=== PATIENT | male | born 1970 | race Caucasian/White ===

== ENCOUNTER 2017-04-11 18:42 | Observation (INO) | payer BC ==
[~2017-04-11] VITALS: Ht 175.3 cm; Wt 94.2 kg
[2017-04-11 19:30] LABS: BASOPHILS 0.3 % (0-2); HEMATOCRIT 43.6 % (42.0-54.0); HEMOGLOBIN 15.3 g/dL (13.5-17.5); IMMATURE GRANULOCYTES 0.1 % (0-5); LYMPHOCYTES 28.7 % (15-50); MCH 30.9 pg (26.0-34.0); MCHC 35.1 g/dL (31.0-37.0); MCV 88.1 fL (80.0-100.0); MEAN PLATELET VOLUME 10.2 fL (7.4-10.4); MONOCYTES 9.1 % (2-11); NEUTROPHILS 57.8 % (40-80); PLATELET COUNT 186 10x3/uL (130-400); RBC 4.95 10x6/uL (4.20-6.10); RDW 12.8 % (11.5-14.5); WBC 7.3 10x3/uL (4.8-10.8)
[2017-04-11 19:55] LABS: ALBUMIN 4.1 g/dL (3.4-5.0); ALKALINE PHOSPHATASE 35 U/L (46-116); ALT (SGPT) 37 U/L (10-68); AMYLASE - SERUM 33 U/L (25-115); BILIRUBIN - TOTAL 0.25 mg/dL (0.2-1.3); CALC OSMOLALITY 282 mosm/kg (275-300); CARBON DIOXIDE 27.6 mmol/L (21.0-32.0); CHLORIDE - SERUM 105 mmol/L (98-107); CKMB 1.7 U/L (0.0-3.6); CREATINE KINASE 158 UL (21-232); CREATININE - SERUM 1.2 mg/dL (0.6-1.3); GLUCOSE 103 mg/dL (74-106); LIPASE 120 U/L (73-393); POTASSIUM - SERUM 3.6 mmol/L (3.5-5.1); PROTEIN - SERUM 7.4 g/dL (6.4-8.2); SODIUM 142 mmol/L (136-145); UREA NITROGEN 13 mg/dL (7-18); eGFR NON AFRICAN AMERICAN 69 mL/min (90-120)
[2017-04-11 19:56] LABS: CALCIUM 8.8 mg/dL (8.5-10.1); TROPONIN-I < 0.017 ng/mL (0.000-0.060)
[2017-04-11 21:41] VITALS: Ht 175.3 cm; Wt 94.2 kg
--- NOTE | 2017-04-11 21:56 | NUR ---
REC'D PT FROM ER VIA W/C. FAMILY PRESENT. PT A/O X3. TELEMETRY PLACED ON PT RUNNING SR AT 90. PT DENIES ACTIVE CHEST PAIN. C/O OF DISCOMFORT WHEN TAKING A "BIG BREATH". BUT STATES THAT IS IMPROVING. PT GIVEN ICE WATER AND A SANDWICH. DENIES NEEDS AT THIS TIME. IV TO PT'S LEFT AC IS PATENT. ORIENTED PT TO ROOM. CALL LIGHT WITH IN REACH. WILL CONT. TO MONITOR.
--- NOTE | 2017-04-11 23:22 | NUR ---
PT LAYING IN BED A/O. HOB ELEVATED. PT VISITING WITH SEVERAL FAMILY MEMEBERS. NO DISTRESS NOTED. CALL LIGHT WITH IN REACH. WILL CONT. TO MONITOR.
[2017-04-12] VITALS: BP 130/77
--- NOTE | 2017-04-12 00:04 | NUR ---
PT C/O OF CHEST PAIN 4/10 ON PAIN SCALE. STATES IT IS MORE LIKE A DULL PAIN. CURRENTLY PAIN IS LOCALIZED TO CENTER OF THE CHEST, AND NOT RADIATING. RUNNING NS AT 86 ON TELEMETRY. METAL ENGINEERING PROCESS WORKER PAGED TO NOTIFY ER PHYSICIAN, AND TO OBTAIN A CARDIAC CONSULT ORDER. PT STATES " I BET IT IS JUST GAS." PT DENIES NEEDS AT THIS TIME. SPOUSE AT BEDSIDE. CALL LIGHT WITH IN REACH. WILL CONT. TO MONITOR.
--- NOTE | 2017-04-12 00:26 | NUR ---
EKG OBTAINED FOR COMPARISON. REVIEWED BY HORACIO RN/CHARGE NURSE. NO SIGNIFICANT CHANGES NOTED. WILL CONT. TO MONITOR.
--- NOTE | 2017-04-12 00:29 | NUR ---
PT LAYING IN BED WITH SPOUSE WATCHING TV. STATES CP IS A 1 OR 2. DENIES NEEDS. NO DISTRESS NOTED. WEARING O2 AT 2 LITERS VIA NC. CALL LIGHT WITH IN REACH. WILL CONT. TO MONITOR.
[2017-04-12 01:40] LABS: CREATINE KINASE 148 UL (21-232)
[2017-04-12 01:52] LABS: TROPONIN-I < 0.017 ng/mL (0.000-0.060)
--- NOTE | 2017-04-12 02:33 | NUR ---
PT SLEEPING. APPEARS COMFORTABLE. RESP EVEN AND UNLABORED. NO DISTRESS NOTED. SPOUSE AT BEDSIDE. CALL LIGHT WITH IN REACH. WILL CONT. TO MONITOR.
[2017-04-12 04:00] VITALS: BP 112/71
--- NOTE | 2017-04-12 04:27 | NUR ---
PT SLEEPING. AWAKEN BY PROFESSOR OF CRIMINAL JUSTICE. DENIES NEEDS. DENIES PAIN OR DISCOMFORT AT THIS TIME. SPOUSE AT BEDSIDE. CALL LIGHT WITH IN REACH. WILL CONT. TO MONITOR.
--- NOTE | 2017-04-12 05:55 | NUR ---
PT SLEEPING SOUNDLY. RESP EVEN AND UNLABORED. NO DISTRESS NOTED. SPOUSE SLEEPING AT BEDSIDE. CALL LIGHT WITH IN REACH. WILL CONT. TO MONITOR.
[2017-04-12 07:25] LABS: CREATINE KINASE 122 UL (21-232); TROPONIN-I < 0.017 ng/mL (0.000-0.060)
[2017-04-12 09:20] VITALS: BP 126/82
--- NOTE | 2017-04-12 09:50 | NUR ---
TELEMETRY SR. AT BS. CALL LIGHT IN REACH. WILL CONT. PLAN OF CARE.
[2017-04-12 11:49] VITALS: BP 114/71
[2017-04-12 13:49] LABS: CKMB 1.1 U/L (0.0-3.6); CREATINE KINASE 110 UL (21-232)
[2017-04-12 13:53] LABS: TROPONIN-I < 0.017 ng/mL (0.000-0.060)
--- NOTE | 2017-04-12 14:30 | NUR ---
UP TO SHOWER. LINENS CHANGED BY LOGGING CREW SUPERVISOR.
[2017-04-12 15:45] VITALS: BP 123/72
[2017-04-12] MEDS ORDERED: ASPIRIN EC81 M1 PO (16:03)
--- NOTE | 2017-04-12 16:49 | NUR ---
IV AND TELEMETRY DCD. DC PLANS GIVEN. UNDERSTANDING VOICED. ESCORTED TO CAR BY W/C.
== END 2017-04-12 16:50 | disposition home or self-care (01) ==
LOC: D.ER 18:42 → D.M2 21:00 → OBSVTIME 21:00 → D.M2 04-12 16:50
PROVIDERS: Family Medicine; ADMIT Emergency Medicine
DX: R07.89 Other chest pain (principal)

== ENCOUNTER → 2018-04-21 12:36 | Outpatient (CLI) | payer BC ==
[2017-04-11 21:41] VITALS: BMI 30.3
[~2018-04-21 12:36] MED LIST: ASPIRIN EC81 M1 PO
== END | disposition home or self-care (01) ==
LOC: D.MRI 12:36
DX: M79.671 Pain in right foot (principal)